=== PATIENT | female | born 1985 | race Caucasian/White ===

== ENCOUNTER 2023-11-07 08:35 | Day surgery (SDC) | payer OTHER ==
[2023-11-07] MEDS ORDERED: Ondansetron 4 MG/2 ML SDV IVPUSH ONE (08:36)
[2023-11-07] MEDS ORDERED: fentaNYL 100 MCG/2 ML SDV IV ONE (08:36)
[2023-11-07] MEDS ORDERED: Ketorolac 30 MG/ML SDV IVPUSH ONE (08:36)
[2023-11-07] MEDS ORDERED: Midazolam 1 MG/ML 2 ML SDV IV ONE (08:36)
[2023-11-07] MEDS ORDERED: Propofol 200 MG/20 ML SDV IV ONE (08:36)
[2023-11-07] MEDS ORDERED: Lactated Ringers 1,000 ML IV ONE (08:36)
[2023-11-07] MEDS ORDERED: Dexamethasone 4 MG/ML 5 ML MDV IVPUSH ONE (08:36)
[2023-11-07] MEDS ORDERED: Neostigmine Methylsulfate 10 MG/10 ML MDV IVPUSH ONE (08:36)
[2023-11-07] MEDS ORDERED: Glycopyrrolate 0.2 MG/ML 5 ML MDV IV ONE (08:36)
[2023-11-07] MEDS ORDERED: Rocuronium 100 MG/10 ML MDV IV ONE (08:36)
[2023-11-07] MEDS ORDERED: Sodium Chloride 0.9% 10 ML Syringe FLUSH PRN (08:45)
[2023-11-07] MEDS ORDERED: Lactated Ringers 1,000 ML IV SCH (08:45)
[2023-11-07] MEDS ORDERED: Gabapentin 300 MG Cap PO ONE (09:45)
[2023-11-07] MEDS ORDERED: Acetaminophen 500 MG Tab PO ONE (09:45)
[2023-11-07] MEDS ORDERED: ceFAZolin 1 GM Vial IVPUSH ONE (09:50)
[2023-11-07] MEDS ORDERED: Bupivacaine 0.5%/EPINEPHrine 1:200,000 10 ML SDV INJECT ONE (09:52)
== END 2023-11-07 12:30 | disposition home or self-care (01) ==
LOC: FB.SDS 08:35
PROVIDERS: ATTEND Surgery
DX: K80.10 Calculus of gallbladder with chronic cholecystitis without obstruction (principal); K82.8 Other specified diseases of gallbladder; Z79.899 Other long term (current) drug therapy
CPT/HCPCS: 00790; 81025; 88304; A9270-GY; J0690; J1100; J1885; J2250; J2405; J2704; J2710; J3010; J3490; J7120